=== PATIENT | female | born 1965 ===

== ENCOUNTER 2022-08-09 09:47 | Outpatient (CLI) | payer OTHER, SELFPAY ==
[2022-08-09 15:00] LABS: Albumin* 4.3 g/dL (3.3-5.0); Chloride* 103 mmol/L (96-114)
[2022-08-09 15:01] LABS: Potassium* 3.6 mmol/L (3.6-5.1); Sodium* 141 mmol/L (135-149)
[2022-08-09 15:03] LABS: Alkaline Phosphatase* 60 U/L (40-150); Aspartate Amino Transferase* 35 U/L (12-35); Bilirubin Total* 1.1 mg/dL (0.1-1.5); Blood Urea Nitrogen* 14 mg/dL (7-30); Carbon Dioxide* 31 mmol/L (20-32); Cholesterol* 182 mg/dL (90-199); Creatinine* 0.8 mg/dL (0.5-1.5); Estimated Glomerular Filt Rate 86 ml/min; Total Protein* 6.7 g/dL (6.0-8.3)
[2022-08-09 15:04] LABS: Alanine Aminotransferase* 33 U/L (4-35); Calcium* 9.4 mg/dL (8.4-10.6); Glucose* 130 mg/dL (60-115); HDL Cholesterol* 51 mg/dL (>=50); LDL Cholesterol Calculated 112 mg/dL (<100); Triglycerides* 95 mg/dL (40-149)
== END 2022-08-09 09:48 | disposition home or self-care (01) ==
PROVIDERS: PCP Physician Assistant Medical; Visit Provider Physician Assistant Medical
DX: E78.5 Hyperlipidemia, unspecified (principal); I10 Essential (primary) hypertension; Z13.29 Encounter for screening for other suspected endocrine disorder
CPT/HCPCS: 80053; 80061; 84443

== ENCOUNTER 2023-12-20 11:10 | Outpatient (CLI) | payer OTHER, SELFPAY | END 2023-12-20 11:11 | disposition home or self-care (01) | PROVIDERS: PCP Physician Assistant Medical; Visit Provider Physician Assistant Medical | DX: E78.5 Hyperlipidemia, unspecified (principal); R73.03 Prediabetes; I10 Essential (primary) hypertension | CPT/HCPCS: 80053; 80061; 84443 ==

== ENCOUNTER 2025-01-27 08:35 | Outpatient (CLI) | payer OTHER, SELFPAY | END 2025-01-27 08:36 | disposition home or self-care (01) | LOC: NFLDREF 01-30 19:37 | PROVIDERS: PCP Physician Assistant Medical; Referring Provider Physician Assistant Medical; Visit Provider Physician Assistant Medical | DX: I10 Essential (primary) hypertension (principal); R73.03 Prediabetes; E78.5 Hyperlipidemia, unspecified; Z13.29 Encounter for screening for other suspected endocrine disorder | CPT/HCPCS: 80053; 80061; 82043; 82570; 84443 ==